=== PATIENT | female | born 1985 | race Caucasian/White ===

== ENCOUNTER 2018-05-31 11:39 | Inpatient (IN) ==
[2018-05-31] MEDS ORDERED: Oxytocin 30 Units/500ml Premix 30 UNITS/500 ML BAG IV.SIG PRN (12:35)
[2018-05-31] MEDS ORDERED: Naloxone Inj 0.4 MG/ML Vial IV.PUSH PRN ×2 (12:35→17:29)
[2018-05-31] MEDS ORDERED: Oxytocin 30 Units/500ml Premix 30 UNITS/500 ML BAG IV.SIG ONE (12:35)
[2018-05-31] MEDS ORDERED: Sodium Chlor 0.9% Inj 500 ML IV.SIG PRN (12:35)
[2018-05-31] MEDS ORDERED: fentaNYL Citrate Inj 100 MCG/2 ML Ampul IV.PUSH PRN ×2 (12:35)
[2018-05-31] MEDS ORDERED: Sod Chloride 0.9% Inj 1,000 ML IV.CONT PRN (12:35)
[2018-05-31] MEDS ORDERED: Citric Acid/Sodium Citrate Liq 30 ML UDC PO SCH (12:45)
[2018-05-31 12:59] LABS: Baso % (Auto) 0.2 % (0.0-2.0); Eos % (Auto) 0.1 % (0.0-4.0); Hematocrit 39.2 % (35.0-46.0); Lymph # (Auto) 1.7 th/mm3 (1.0-4.8); Lymph % (Auto) 15.1 % (9.0-44.0); Mean Corpuscular HGB Conc 33.2 % (32.0-36.0); Mean Corpuscular Hemoglobin 30.2 pg (27.0-34.0); Mean Platelet Volume 10.3 fL (7.0-11.0); Mono # (Auto) 0.6 th/mm3 (0.0-0.9); Mono % (Auto) 4.9 % (0.0-8.0); Neut % (Auto) 79.7 % (16.0-70.0); Platelet Count 133 th/mm3 (150-450); Red Blood Count 4.31 mil/mm3 (4.00-5.30); Red Cell Distribution Width 13.5 % (11.6-17.2); White Blood Count 11.3 th/mm3 (4.0-11.0)
[2018-05-31] MEDS ORDERED: Penicillin G Potassium Inj 5,000,000 UNIT in Sodium Chloride 0.9% Inj 100 ML IV.SIG ONE (13:15)
[2018-05-31 13:18] LABS: Bacteria,Urine Rare /hpf; Bilirubin,Urine Negative (Negative); Clarity,Urine Clear (Clear); Color,Urine Yellow (Yellw/Straw); Glucose,Urine (UA) Negative (Negative); Leukocyte Esterase,Urine Trace (Negative); Mucus,Urine Few /lpf (Occasional); Nitrite,Urine Negative (Negative); Specific Gravity,Urine 1.006 (1.002-1.035); Squamous Epithelial Cell,Urine 3 /hpf (0-5)
[2018-05-31 13:22] LABS: Amphetamine Urine With Conf Neg (Neg); Benzodiazepine Urine With Conf Neg (Neg)
--- NOTE | 2018-05-31 13:35 | P.HPOB ---
History of Present Illness Service: ob Primary Care Physician: No Primary Care Physician Chief Complaint: contractions History of Present Illness: 30 yo with iup at 38 w 4 d being admitted for labor. She has been having frequent contractions since last night, + pelvic pressure. Believes she may have been leaking all week; has been feeling wet every time she stands, coughs, or does any strenuous movement. Baby has been less active during day but good movement at night. SVE neg pooling, valsalva, nitro, and fern. SVE 50/-2. U/ S today notes bpp 8/8 fluid normal but has appearance of likely meconium. PMH: Asthma, varicella equivocal, chronic back pain, RH neg s/p rhogam PSH:6 LEEP OB: G1 01/2011 40 wk, , 7 lb 4 oz, M Jigar G2 08/2013 41 wk 7 lb 6 oz, F Schneider SODA FOUNTAIN CLERK: H/o cervical dysplasia, leep FAM : denies genetic d/o or defect Weeks Gestation:: 38 Para: 2 : 3 - Inpatient Certification I certify that the inpatient services were ordered in accordance with Medicare regulations governing the order. This includes certification that hospital inpatient services are reasonable and necessary and in the case of services not specified as inpatient-only under 42 CFR 419.22(n), that they are appropriately provided as inpatient services in accordance to with the 2-midnight benchmark under 43 CFR 412.3(e) Estimated Total Length of Stay (Days): 3 Plans for Post Hospital Care: Home Review of Systems All other systems reviewed negative except as stated in [facility] - History History Provided By: Patient - Medical History Medical History: Medical History (Last Updated 04/22/18 @ 02:56 by Lance Nelson MD) Asthma Migraine - Tobacco History Second Hand Smoke Exposure: No Smoking Status: Never smoker - Alcohol History How Often Do You Have a Drink Containing Alcohol: Never - Substance Use History Substance History: No History of Abuse - Travel History Recent Travel in the [place] Within the Last 8 Weeks: No Recent Travel Out of the Country Within the Last 8 Weeks: No - Immunization History Hx Influenza Vaccine This Season: Yes Medications and Allergies Active Medications: Active Medications Citric Acid/Sodium Citrate (Sodium Citrate/Citric Acid Liq) 30 ml 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 Stop: 06/04/18 12:44 Fentanyl Citrate (Fentanyl Inj) 50 mcg IV.PUSH Q1H PRN PRN Reason: Pain Scale 3 - 5 Fentanyl Citrate (Fentanyl Inj) 100 mcg IV.PUSH Q1H PRN PRN Reason: PAIN SCALE 6 TO 10 Lactated Ringer's (Lr 1000 Ml Inj) 1,000 mls @ 125 mls/hr IV.CONT .Q8H REID Lactated Ringer's (Lr 1000 Ml Inj) 1,000 mls @ 3,000 mls/hr IV.SIG UNSCH PRN PRN Reason: compromise or epidural Sodium Chloride (Ns Inj) 1,000 mls @ 100 mls/hr IV.CONT .Q10H PRN PRN Reason: SEE LABEL COMMENTS Oxytocin (Pitocin 30 Units/Ns 500 Ml Premix) 30 units in 500 mls @ 2 mls/hr IV.SIG TITRATE PRN; Protocol PRN Reason: For induction of labor Penicillin G Potassium 5,000, (000 unit/ Sodium Chloride) 100 mls @ 200 mls/hr IV.SIG ONCE ONE Stop: 05/31/18 13:44 Penicillin G Potassium 2,500, (000 unit/ Sodium Chloride) 100 mls @ 200 mls/hr IV.SIG Q4H REID Sodium Chloride (Ns Inj) 500 mls @ 1,000 mls/hr IV.SIG UNSCH PRN PRN Reason: SEE LABEL COMMENTS Lidocaine HCl (Xylocaine 1% Inj) 0.1 ml I-DERMAL PRN PRN PRN Reason: For IV start Stop: 06/03/18 12:34 Lidocaine HCl (Xylocaine 1% Inj) 10 ml INFILTRATN PRN PRN PRN Reason: For episiotomy repair Stop: 06/02/18 12:34 Mineral Oil (Muri-Lube Oil) 10 ml TOPICAL PRN PRN PRN Reason: PRN perineal massage Naloxone HCl (Narcan Inj) 0.1 mg IV.PUSH Q2M PRN PRN Reason: for opiate reversal Ondansetron HCl (Zofran Inj) 4 mg IV.PUSH Q6H PRN PRN Reason: NAUSEA OR VOMITING Allergies Allergy/AdvReac Type Severity Reaction Status Date / Time latex Allergy Mild MILD Verified 05/31/18 12:33 ITCHING AND IRRITATION Home Medications Medication Instructions Recorded Confirmed Type albuterol sulfate 1 puff INHALATION Q4-6H PRN 05/31/18 05/31/18 History loratadine [Claritin] 10 mg PO DAILY PRN 05/31/18 05/31/18 History vit,[id number] 1 tab PO DAILY 05/31/18 05/31/18 History [PNV 29-1] Exam Vital signs: Vital Signs 05/31/18 11:56 05/31/18 12:00 Temperature 98.4 F Pulse Rate 88 Respiratory Rate 18 Blood Pressure 132/84 Intake & Output 05/30/18 05/31/18 05/31/18 18:59 06:59 18:59 Weight 70.307 kg Other: Weight On Admission 70.307 kg - Constitutional no acute distress - Routine HEENT Exam Head: Present: normocephalic Eye: Present: EOMI - Routine Neck Exam Present: supple, full ROM - Routine Respiratory Exam Absent: accessory muscle use, decreased breath sounds, prolonged expiratory phase - Routine Cardiovascular Exam Present: RRR - Routine Abdominal Exam Comments: gravid - Routine Exam Comments: /2 - Routine Extremities Exam Absent: cyanosis, clubbing, edema - Routine Neurological Exam Present: alert, oriented X3 Results - Labs CBC & Chem 7: 05/31/18 12:05 Labs: Laboratory Results - last 24 hr 05/31/18 05/31/18 12:05 12:05 WBC 11.3 H RBC 4.31 Hgb 13.0 Hct 39.2 MCV 91.0 MCH 30.2 MCHC 33.2 RDW 13.5 Plt Count 133 L MPV 10.3 Neut % (Auto) 79.7 H Lymph % (Auto) 15.1 [place] % (Auto) 4.9 Eos % (Auto) 0.1 Baso % (Auto) 0.2 Neut # (Auto) 9.0 H Lymph # (Auto) 1.7 [place] # (Auto) 0.6 Eos # (Auto) 0.0 Baso # (Auto) 0.0 WBC Differential . Differential Comment Auto diff final Blood Type A Negative Blood Type Recheck Not needed Group B Strep: Positive Caprini VTE Risk Assessment Caprini VTE Risk Assessment: No/Low Risk (score <= 1) Caprini Risk Assessment Model: Point Value = 1 Point Value = 2 Point Value = 3 Point Value = 5 Age 41-60 Minor surgery BMI > 25 kg/m2 Swollen legs Varicose veins or History of unexplained or recurrent spontaneous Oral contraceptives or hormone replacement Sepsis (< 1 month) Serious lung disease, including pneumonia (< 1 month) Abnormal pulmonary function Acute myocardial infarction Congestive heart failure (< 1 month) History of inflammatory bowel disease Medical patient at bed rest Age 61-74 Arthroscopic surgery Major open surgery (> 45 min) Laparoscopic surgery (> 45 min) Malignancy Confined to bed (> 72 hours) Immobilizing plaster cast Central venous access Age >= 75 History of VTE Family history of VTE Factor V Leiden Prothrombin [id number] Lupus anticoagulant Anticardiolipin antibodies Elevated serum homocysteine Heparin-induced thrombocytopenia Other congenital or acquired thrombophilia Stroke (< 1 month) Elective arthroplasty Hip, pelvis, or leg fracture Acute spinal cord injury (< 1 month) Prophylaxis Regimen: Total Risk Factor Score Risk Level Prophylaxis Regimen 0-1 Low Early ambulation 2 Moderate Order ONE of the following: *Sequential Compression Device (SCD) *Heparin 5000 units SQ BID 3-4 Higher Order ONE of the following medications: *Heparin 5000 units SQ TID *Enoxaparin/Lovenox 40 mg SQ daily (WT < 150 kg, CrCl > 30 mL/min) *Enoxaparin/Lovenox 30 mg SQ daily (WT < 150 kg, CrCl > 10-29 mL/min) *Enoxaparin/Lovenox 30 mg SQ BID (WT < 150 kg, CrCl > 30 mL/min) AND/OR *Sequential Compression Device (SCD) 5 or more Highest Order ONE of the following medications: *Heparin 5000 units SQ TID (Preferred with Epidurals) *Enoxaparin/Lovenox 40 mg SQ daily (WT < 150 kg, CrCl > 30 mL/min) *Enoxaparin/Lovenox 30 mg SQ daily (WT < 150 kg, CrCl > 10-29 mL/min) *Enoxaparin/Lovenox 30 mg SQ BID (WT < 150 kg, CrCl > 30 mL/min) AND *Sequential Compression Device (SCD) Assessment and Plan - Diagnosis (1) Labor and delivery indication for care or intervention Code(s): O75.9 - Complication of labor and delivery, unspecified Status: Acute (2) 38 weeks gestation of Code(s): Z3A.38 - 38 weeks gestation of Status: Acute (3) Advanced maternal age (AMA) in Status: Acute (4) Rh negative state in antepartum period Code(s): O09.899 - Supervision of other high risk pregnancies, unspecified trimester; Z67.91 - Unspecified blood type, Rh negative Status: Acute (5) GBS (group B Streptococcus carrier), +RV culture, currently Code(s): O99.820 - Streptococcus B carrier state complicating Status : Acute - Plan 33 yo with iup at 38w4d being admitted for labor 1) Labor- will arom and pit prn, anticipate 2) GBS + _ pcn 3_ RH neg- rhogam eval pp 4) Varicella immunity equivocal- consider pp vaccination 5) AMA neg cfDNA, normal anatomy u/s 6) Asthma- mild intermittent, well controlled, albuterol prn 7) FEtus - EFW 7.5 lb, Ceph, possible meconium Discharge Planning: ppd2-3
--- NOTE | 2018-05-31 14:29 | P.PN ---
Subjective Interval history: OBHG Asked to perform AROM by Dr. Gregg. Introduced myself to patient and stated my reason for evaluating her. FHR 120s with moderate mcfp variability, good accels, and no decels noted. Patient is having contractions, noted every 2- 6 minutes but with irregular pattern at time of evaluation. SVE 4/50/-1, AROM performed without difficulty, fluid appeared clear. Physical Exam Vital signs: Vital Signs 05/31/18 11:56 05/31/18 12:00 05/31/18 13:30 Temperature 98.4 F Pulse Rate 88 79 Respiratory Rate 18 18 Blood Pressure 132/84 124/82 05/31/18 13:52 05/31/18 14:21 05/31/18 14:22 Temperature 98.5 F Pulse Rate 76 88 Respiratory Rate 18 Blood Pressure 127/84 146/87 H Intake & Output 05/30/18 05/31/18 05/31/18 18:59 06:59 18:59 Weight 70.307 kg Other: Weight On Admission 70.307 kg Results - Labs CBC & Chem 7: 05/31/18 12:05 Laboratory Results - last 24 hr 05/31/18 05/31/18 05/31/18 12:00 12:00 12:05 WBC 11.3 H RBC 4.31 Hgb 13.0 Hct 39.2 MCV 91.0 MCH 30.2 MCHC 33.2 RDW 13.5 Plt Count 133 L MPV 10.3 Neut % (Auto) 79.7 H Lymph % (Auto) 15.1 [place] % (Auto) 4.9 Eos % (Auto) 0.1 Baso % (Auto) 0.2 Neut # (Auto) 9.0 H Lymph # (Auto) 1.7 [place] # (Auto) 0.6 Eos # (Auto) 0.0 Baso # (Auto) 0.0 WBC Differential . Differential Comment Auto diff final Urine Color Yellow Urine Clarity Clear Urine pH 7.0 Ur Specific [place] 1.006 Urine Protein Negative Urine Glucose (UA) Negative Urine Ketones Negative Urine Occult Blood Negative Urine Nitrate Negative Urine Bilirubin Negative Urine Urobilinogen Less than 2 Ur Leukocyte Esterase Trace H Urine RBC Less than 1 Urine WBC 2 Ur Squamous Epith Cells 3 Urine Bacteria Rare H Urine Mucus Few H Micro UA Comment Culture not ind Ur Microscopic Review Not Reportable Urine Culture Comments Culture not ind Urine Opiates Screen Neg Ur Barbiturates Screen Neg Ur Amphetamine Screen Neg U Benzodiazepines Scrn Neg Urine Cocaine Screen Neg U Cannabinoids Screen Neg Blood Type Blood Type Recheck 05/31/18 12:05 WBC RBC Hgb Hct MCV MCH MCHC RDW Plt Count MPV Neut % (Auto) Lymph % (Auto) [place] % (Auto) Eos % (Auto) Baso % (Auto) Neut # (Auto) Lymph # (Auto) [place] # (Auto) Eos # (Auto) Baso # (Auto) WBC Differential Differential Comment Urine Color Urine Clarity Urine pH Ur Specific [place] Urine Protein Urine Glucose (UA) Urine Ketones Urine Occult Blood Urine Nitrate Urine Bilirubin Urine Urobilinogen Ur Leukocyte Esterase Urine RBC Urine WBC Ur Squamous Epith Cells Urine Bacteria Urine Mucus Micro UA Comment Ur Microscopic Review Urine Culture Comments Urine Opiates Screen Ur Barbiturates Screen Ur Amphetamine Screen U Benzodiazepines Scrn Urine Cocaine Screen U Cannabinoids Screen Blood Type A Negative Blood Type Recheck Not needed
[2018-05-31] MEDS ORDERED: Lidocaine 2%/Epinephrine 1:100,000 Inj 20 ML Vial ONE (15:21)
[2018-05-31] MEDS ORDERED: Lidocaine PF 1% Inj 5 ML Vial ONE (15:21)
[2018-05-31] MEDS ORDERED: fentaNYL 2MCG-Bupiv 0.125% Epi 150 ML EPIDURAL ONE (15:24)
[2018-05-31] MEDS ORDERED: Penicillin G Potassium Inj 2,500,000 UNIT in Sodium Chlor 0.9% Inj 100 ML IV.SIG SCH (17:00)
[2018-05-31] MEDS ORDERED: Zolpidem Tartrate 5 MG Tablet PO PRN (17:29)
[2018-05-31] MEDS ORDERED: Benzocaine 20% Top Spray 60 ML Can TOPICAL PRN (17:29)
[2018-05-31] MEDS ORDERED: Acetaminophen 325 MG Tablet PO PRN (17:29)
[2018-05-31] MEDS ORDERED: Oxytocin 30 Units/500ml Premix 30 UNITS/500 ML BAG IV.CONT PRN (17:29)
[2018-05-31] MEDS ORDERED: Witch Hazel 50%/Glyderin 12.5% 40 Pad Jar RECTAL PRN (17:29)
--- NOTE | 2018-05-31 17:33 | P.OBDELI ---
Weeks Gestation: 38 Patient Started Active Labor: Yes Artificial Rupture of Membrane: Yes Anesthesia: Epidural Episiotomy: none Vaginal Delivery: Normal Presentation: Occiput anterior Nuchal Cord: Other (oose cord around leg) Delayed Cord Clamping (45 sec): Yes Placenta: Spontaneous delivery, Intact Laceration: 2 deg Repair: Chromic running Estimated blood loss (mL): 400 Infant: Male Infant Male A Delivery Date: 05/31/18 Delivery Time: 17:09 Weight: 3.35 kg score (1 min): 9 score (5 min): 9
[2018-05-31] MEDS ORDERED: Measles/Mumps/Rubella Vaccine Inj 0.5 ML Vial SQ ONE (18:00)
[2018-05-31] MEDS ORDERED: Diphtheria/Tetanus/Pertussis Vaccine Inj 0.5 ML Syringe IM ONE (18:00)
[2018-05-31] MEDS ORDERED: fentaNYL 2MCG-Bupiv 0.125% Epi 150 ML EPIDURAL PRN (18:08)
[2018-05-31] MEDS ORDERED: fentaNYL Citrate Inj 100 MCG/2 ML Ampul EPIDURAL ONE (18:30)
[2018-06-01] MEDS: Senna/Docusate Sodium 8.6/50 MG Tablet PO SCH ×3 (02:18→23:21)
--- NOTE | 2018-06-01 08:40 | P.PNOB ---
Subjective Post day: 1 Interval history: PPD#1; Stable,doing well, history of GBS +,plan discharge home PPD#2 Objective Vital Signs/I&O: Vital Signs 05/31/18 11:56 05/31/18 12:00 05/31/18 13:30 Temperature 98.4 F Pulse Rate 88 79 Respiratory Rate 18 18 Blood Pressure 132/84 124/82 05/31/18 13:52 05/31/18 14:21 05/31/18 14:22 Temperature 98.5 F Pulse Rate 76 88 Respiratory Rate 18 Blood Pressure 127/84 146/87 H 05/31/18 14:54 05/31/18 15:28 05/31/18 15:30 Temperature Pulse Rate 70 81 75 Respiratory Rate Blood Pressure 132/86 144/97 H 155/96 H 05/31/18 15:35 05/31/18 15:40 05/31/18 15:45 Temperature Pulse Rate 81 83 83 Respiratory Rate Blood Pressure 146/91 H 139/79 134/81 05/31/18 15:46 05/31/18 15:55 05/31/18 16:10 Temperature 98.2 F Pulse Rate 81 82 Respiratory Rate 18 Blood Pressure 120/78 120/66 05/31/18 16:15 05/31/18 16:32 05/31/18 16:33 Temperature Pulse Rate 87 80 Respiratory Rate 18 Blood Pressure 138/111 H 05/31/18 17:00 05/31/18 17:23 05/31/18 17:30 Temperature Pulse Rate 75 91 H Respiratory Rate 18 Blood Pressure 134/80 127/71 05/31/18 17:31 05/31/18 17:45 05/31/18 18:00 Temperature 98.3 F Pulse Rate 82 75 Respiratory Rate 18 18 Blood Pressure 125/72 142/89 H 136/79 05/31/18 18:16 05/31/18 18:26 05/31/18 20:00 Temperature 97.7 F Pulse Rate 84 72 Respiratory Rate 18 18 Blood Pressure 110/59 L 125/78 Intake & Output 05/31/18 06/01/18 06/01/18 18:59 06:59 18:59 Intake Total 1000 / 1000 Balance 1000 / 1000 Weight 70.307 kg Intake: IV 1000 / 1000 LR 1000 mL Inj 1,000 ML @ 125 1000 / 1000 mls/hr IV.CONT .Q8H REID Rx#: [id number] Other: Weight On Admission 70.307 kg Result Diagrams: 05/31/18 12:05 Objective Remarks: GENERAL: Well-nourished, well-developed patient. CARDIOVASCULAR: Regular rate and rhythm without murmurs, gallops, or rubs. RESPIRATORY: Breath sounds equal bilaterally. No accessory muscle use. ABDOMEN/GI: Abdomen soft, non-tender. Fundus: Firm, non-tender at umbilicus. GENITOURINARY: Light to moderate bleeding. EXTREMITIES: No cyanosis or edema, non-tender, without signs of DVT. Medications and IVs: Active Medications Acetaminophen (Tylenol) 650 mg PO Q4H PRN PRN Reason: PAIN SCALE 1 TO 2 Last Admin: 05/31/18 17:52 Dose: 650 mg Al Hydroxide/Mg Hydroxide (Milk Of Prabha Shepard) 30 ml PO Q12H PRN PRN Reason: Mild Constipation Benzocaine (Americaine 20% [place]) 1 spray TOPICAL Q4H PRN PRN Reason: For Perineum Discomfort Ephedrine Sulfate (Ephedrine/Ns Syringe) 10 mg IV.PUSH UNSCH PRN PRN Reason: SEE LABEL COMMENTS Stop: 06/01/18 18:08 Oxytocin (Pitocin 30 Units/Ns 500 Ml Premix) 30 units in 500 mls @ 100 mls/hr IV.CONT UNSCH PRN PRN Reason: Heavy bleeding Fentanyl/Bupivacaine/Sodium Chlor (Fentanyl 2 Mcg-Bupiv 0.125% Epi) 150 mls @ 12 mls/hr EPIDURAL PRN PRN PRN Reason: for Labor Pain Ibuprofen (Motrin) 800 mg PO Q8H PRN PRN Reason: For Cramping Last Admin: 06/01/18 02:16 Dose: 800 mg Miscellaneous Information (Misc Information) 1 each OTHER UNSCH PRN PRN Reason: SEE LABEL COMMENTS Stop: 06/01/18 18:08 Miscellaneous Information (Misc Information) 1 each OTHER UNSCH PRN PRN Reason: SEE LABEL COMMENTS Stop: 06/01/18 18:08 Naloxone HCl (Narcan Inj) 0.1 mg IV.PUSH Q2M PRN PRN Reason: for opiate reversal Ondansetron HCl (Zofran Odt) 4 mg PO Q6H PRN PRN Reason: NAUSEA OR VOMITING Senna/Docusate Sodium (Mar-Colace) 1 tab PO BID [facility] Last Admin: 06/01/18 02:18 Dose: Not Given Sodium Chloride (Ns Flush) 2 ml IV.FLUSH BID [facility] Last Admin: 06/01/18 02:18 Dose: Not Given Sodium Chloride (Ns Flush) 2 ml IV.FLUSH UNSCH PRN PRN Reason: FLUSH AFTER USING IV ACCESS Witch Stella/Glycerin (Tucks Pads) 1 applicatio RECTAL QID PRN PRN Reason: HEMORRHOIDS Zolpidem Tartrate (Ambien) 5 mg PO HS PRN PRN Reason: SLEEP Assessment and Plan - Diagnosis (1) Labor and delivery indication for care or intervention Code(s): O75.9 - Complication of labor and delivery, unspecified Status: Acute (2) 38 weeks gestation of Code(s): Z3A.38 - 38 weeks gestation of Status: Acute (3) Advanced maternal age (AMA) in Status: Acute (4) Rh negative state in antepartum period Code(s): O09.899 - Supervision of other high risk pregnancies, unspecified trimester; Z67.91 - Unspecified blood type, Rh negative Status: Acute (5) GBS (group B Streptococcus carrier), +RV culture, currently Code(s): O99.820 - Streptococcus B carrier state complicating Status : Acute - Plan 33 yo with iup at 38w4d being admitted for labor 1) Labor- will arom and pit prn, anticipate 2) GBS + _ pcn 3_ RH neg- rhogam eval pp 4) Varicella immunity equivocal- consider pp vaccination 5) AMA neg cfDNA, normal anatomy u/s 6) Asthma- mild intermittent, well controlled, albuterol prn 7) FEtus - EFW 7.5 lb, Ceph, possible meconium 06/01/18 PPD#2. Stable, doing well, GBS+ discharge plan for tomorrow. Discharge Planning: ppd2-3
[2018-06-02] MEDS: Senna/Docusate Sodium 8.6/50 MG Tablet PO SCH (08:40)
[2018-06-02 09:07] VITALS: BP 149/85; PULSE 59; RESP 20; TEMP 97.8
== END 2018-06-02 13:16 | disposition home or self-care (01) ==
LOC: H2E 11:39 → H1EA 19:39
PROVIDERS: ADMIT Obstetrics & Gynecology; ATTEND Obstetrics & Gynecology